=== PATIENT | female | born 1930 | race African-American/Black ===

== ENCOUNTER 2016-10-10 02:40 | Emergency (ER) | payer MEDICARE, OTHER ==
[2016-10-10 02:06] LABS: ALLENS TEST Pos; BE (BASE EXCESS) 4.8 MEQ/L (0 +/- 2.5); DEVICE NC; HCO3 (ACTUAL BICARBONATE) 28.1 MEQ/L (23-27); INSTRUMENT SERIAL # 8087; METHEMOGLOBIN 0.2 % (0-3); O2 CONTENT 12.6 VOL% (18-24); OPERATOR ID 33449; PCO2 (CO2 TENSION) 37 MMHG (35-45); PO2 (O2 TENSION) 56 MMHG (79-93); SAMPLE Arterial
[~2016-10-10 02:40] MED LIST: AMITIZA24 PO; ATV.5 PO; AUG875 PO; CONSTULOSE PO; DSS PO; GAS-X80 MG PO; LEVOTHYROXIN50 MCG PO; LORTAB10 PO; MELA3 PO; MIRALAXPKT PO; MSCONTIN PO; NORCO1 TAB PO; P10 PO; PEPTO-BISMOL TA1 TAB PO; PROAIR HFA INH; PROTONIX PO; PROVENTSOL INH; SPIRIVA INH; STERAPRED DS10 MG PO; SYMBICORT 160/41 INH INH; SYN.05 PO; SYN075 PO; VENTOLIN HFA INH; ZANAFLEX 4 MG TA4 MG PO
[2016-10-10 03:16] LABS: BASOPHILS 0.1 %; BASOPHILS ABSOLUTE 0.01 10/3/uL (0.0-0.16); EOSINOPHILS 1.1 %; EOSINOPHILS ABSOLUTE 0.15 10/3/uL (0.0-0.53); HEMATOCRIT 32.3 % (36.0-48.0); HEMOGLOBIN 10.1 g/dL (12.0-16.0); IMMATURE GRANULOCYTES 0.4 %; IMMATURE GRANULOCYTES ABSOLUTE 0.05 10/3/uL (0.0-0.11); LYMPHOCYTES 3.7 %; MEAN CORPUS HGB CONC 31.3 g/dL (32.0-36.0); MEAN CORPUSCULAR HEMOGLOB 30.1 pg (26.0-34.0); MEAN PLATELET VOLUME 11.5 fL (9.2-13.0); MONOCYTES 6.5 %; MONOCYTES ABSOLUTE 0.88 10/3/uL (0.21-1.20); NEUTROPHILS 88.2 %; NEUTROPHILS ABSOLUTE 11.99 10/3/uL (2.02-8.40); PLATELET COUNT 177 10/3/uL (150-400); RBC DISTRIBUTION WIDTH 14.6 % (12.0-16.0); RED CELL COUNT 3.36 10/6/uL (4.0-5.6)
[2016-10-10 03:17] LABS: ER CBC TAT 0 Hrs 15 Mins; MANUAL DIFF NO %; MEAN CORPUSCULAR VOLUME 96.1 fL (80-100); WHITE BLOOD CELLS 13.6 10/3/uL (4.5-10.5)
[2016-10-10 03:29] LABS: A/G RATIO 1.1 (0.7-1.9); ALBUMIN 3.3 G/DL (3.5-5.0); ALKALINE PHOSPHATASE 79 U/L (45-117); BUN (BLOOD UREA NITROGEN) 21 MG/DL (6-23); CALCIUM, SERUM 8.3 MG/DL (8.5-10.4); CHLORIDE, SERUM 104 MMOL/L (96-112); CO2 (CARBON DIOXIDE) 32 MMOL/L (24-34); CREATININE 1.37 MG/DL (0.55-1.02); GFR AFRICAN AMERICAN 41 ML/MIN (>=60); GFR NON AFRICAN AMERICAN 35 ML/MIN (>=60); GLUCOSE, SERUM 145 MG/DL (60-99); POTASSIUM, SERUM 4.1 MMOL/L (3.5-5.3); SGOT(AST) 15 U/L (5-40); SGPT(ALT) 16 U/L (5-65); SODIUM, SERUM 143 MMOL/L (135-148); TOTAL BILIRUBIN 0.2 MG/DL (0-1.2); TOTAL PROTEIN 6.3 G/DL (6.0-8.5)
== END 2016-10-10 06:40 | disposition home or self-care (01) ==
LOC: ER 02:40
PROVIDERS: Specialist
DX: J45.901 Unspecified asthma with (acute) exacerbation (principal); J44.9 Chronic obstructive pulmonary disease, unspecified; Z87.01 Personal history of pneumonia (recurrent); Z87.891 Personal history of nicotine dependence; Z90.710 Acquired absence of both cervix and uterus; Z88.8 Allergy status to other drugs, medicaments and biological substances; Z91.048 Other nonmedicinal substance allergy status; Z79.52 Long term (current) use of systemic steroids; Z79.899 Other long term (current) drug therapy
CPT/HCPCS: 36600; 71010; 80053; 82805; 85025; 87040; 87070; 87205; 93005; 94640; 96374; 99285; J2930